=== PATIENT | male | born 1980 | race African-American/Black ===

== ENCOUNTER 2025-08-08 08:06 | Emergency (ER) | payer SELFPAY ==
[2025-08-08] MEDS ORDERED: Acetaminophen 500 MG TAB ONE (09:15)
[2025-08-08] MEDS ORDERED: Methocarbamol 500 MG TAB PO SCH (09:45)
== END 2025-08-08 11:21 | disposition home or self-care (01) ==
LOC: ERS 08:06
DX: S20.211A Contusion of right front wall of thorax, initial encounter (principal); V89.0XXA Person injured in unspecified motor-vehicle accident, nontraffic, initial encounter
CPT/HCPCS: 99284